=== PATIENT | female | born 2000 ===

== ENCOUNTER 2019-01-16 00:41 | Day surgery (SDC) | payer OTHER ==
[~2019-01-16] VITALS: Ht 172.7 cm; Wt 71.7 kg
[2019-01-16] MEDS ORDERED: MIDAZOLAM 2 MG/2 ML VIAL IVP PRN (06:45)
[2019-01-16] MEDS ORDERED: ceFAZolin(*) 2GM/D5W 50ML 50 ML IVPB ONE (06:45)
[2019-01-16] MEDS ORDERED: FAMOTIDINE 20 MG TAB PO ONE (06:45)
[2019-01-16] MEDS ORDERED: NORMOSOL R SOLN(*) 1000 ML BAG 1,000 ML IV PRN (06:45)
[2019-01-16] MEDS ORDERED: LIDOCAINE/SOD BICARB 8.4% SYR ID ONE (06:45)
[2019-01-16] MEDS ORDERED: fentaNYL CITR 100 MCG/2 ML AMP ONE (12:44)
[2019-01-16] MEDS ORDERED: LIDOCAINE 2% IV 100 MG/5ML SYR ONE (12:45)
[2019-01-16] MEDS ORDERED: PROPOFOL EMUL(*) 10MG/ML 20 ML 20 ML ONE (12:45)
[2019-01-16] MEDS ORDERED: PROPOFOL EMUL(*) 10MG/ML 20 ML 40 ML ONE ×2 (12:50→13:07)
[2019-01-16 13:02] VITALS: BP 116/62
[2019-01-16] MEDS ORDERED: ROPIVACAINE 0.5% 20 ML VIAL ONE (13:49)
[2019-01-16] MEDS ORDERED: DEXAMETHASONE SOD 4 MG/ML VIAL ONE (13:53)
[2019-01-16] MEDS ORDERED: ONDANSETRON 4 MG/2 ML VIAL ONE (13:54)
[2019-01-16] MEDS ORDERED: DOCU-416 PO (14:33)
[2019-01-16] MEDS ORDERED: TRAM-420 PO (14:33)
--- NOTE | 2019-01-16 14:37 | Short(Outpt) Discharge Summary ---
Discharge Summary Reason for Hosp/Final Diag: (1) Nodule of groin Status: Chronic Hospital Course & Plan: Left groin nodule excised without problems. Departure Discharge to: Home, Self Care Discharge Instructions Home Meds Active Scripts Docusate Sodium (COLACE) 100 Mg Capsule, 1 CAP PO BID, #30 CAPSULE 0 Refills Prov:MELANY RAMIRES MD 01/16/19 Tramadol Hcl (TRAMADOL HCL) 50 Mg Tablet, 1 TAB PO Q4H PRN for PAIN, #20 TAB 0 Refills Prov:MELANY RAMIRES MD 01/16/19 Follow up Referrals: General Surgery - 01/29/19 @ Surgery, General with MELANY RAMIRES MD You have a follow up appointment scheduled with Dr. Ramires on 01/29/19, at 4:30pm. Diet: Regular Activity: As Tolerated Special Instructions: You may remove the white surgical dressing on 01/18/19, then you can shower. After showering, leave the incision open to air but leave the steristrips in place until they fall off on their own. Do not immerse the incision for 2 weeks. MELANY RAMIRES MD Jan 16, 2019 14:37
--- NOTE | 2019-01-16 14:42 | Post Operative Progress Note ---
Post Operative Progress Note Date: Jan 16, 2019 Time: 14:38 Surgeon: Robert Dictation number: [id number] Anesthesia: LMA by Dr. Norris Pre-Op Diagnosis: Left groin nodule Post-Op Diagnosis: [facility] Findings: C/W dx Procedure(s): Excision of left groin nodule Specimen Removed:(May be N/A): Left groin nodule Complications: None Fluids: See anesthesia record Estimated Blood Loss: Minimal Date OP Note Dictated: Jan 16, 2019 Time OP Note Dictated: 14:39 MELANY RAMIRES MD Jan 16, 2019 14:42
[2019-01-16 15:05] VITALS: BP 99/57
[2019-01-16] MEDS ORDERED: NORMOSOL R SOLN(*) 1000 ML BAG 1,000 ML IV ONE (15:17)
[2019-01-16 15:25] VITALS: BP 101/64
[2019-01-16 15:30] VITALS: BP_SYST 101; BP_SYST 99; BP_DIAS 49; BP_DIAS 64
--- NOTE | 2019-01-16 15:48 | NUR ---
1505: patient completed phase I, stepdown intiated. VSS 1515: patient feeling slightly dizzy, blood pressure 90/53, new bag of IFV initiated, within 5 minutes patient was feeling better. 1530 Patient requested to go to bathroom, states she feels shakey, but no longer dizzy. orthostatic blood pressures completed and WNL. asymptomatic. Patient assisted to bathroom, patient was able to void without difficulty. Dressing clean dry and intact. 1545: patients mother and friend brought to bedside, IV infusing. Patient denies need for pain medication at this time.
[2019-01-16 15:58] VITALS: BP 103/52
--- NOTE | 2019-01-16 16:11 | OPERATIVE REPORT 1 ---
EVENT DATE: January 16, 2019 SURGEON: Neeraj Jones MD ANESTHESIOLOGIST: Ben Norris MD ANESTHESIA: General endotracheal anesthesia. PREOPERATIVE DIAGNOSIS Chronic left groin cyst. POSTOPERATIVE DIAGNOSIS Chronic left groin cyst. PROCEDURE PERFORMED Excision of left groin cyst. COMPLICATIONS None. CONDITION Stable. BLOOD LOSS Minimal. INDICATIONS This is a 18-year-old female who presented to my office with a lump in her left groin, and she said it had previously been incised and drained, but continues to have intermittent flare-ups, and she would like to have it removed. DESCRIPTION OF PROCEDURE The patient was brought to the operating room and placed upon the operating table. General endotracheal anesthesia was administered, and her left leg was placed in a frogleg position. Her left intertriginous/groin area was prepped and draped in a sterile fashion. Timeout was completed, and I injected the skin around the cyst with 0.5% ropivacaine plain. I made an elliptical incision to encompass the previous incision and drainage scar and dissected through the dermis and subcutaneous fat. I dissected around the cyst and then removed it from the wound and made the wound hemostatic with electrocautery. I closed it with interrupted 3-0 Vicryl deep dermal sutures and 4-0 Monocryl running subcuticular sutures. Skin was cleaned and dried, and Steri-Strips were applied, followed by a sterile surgical dressing. Patient was awakened and extubated in the operating room, transferred to the recovery room in stable condition having tolerated the procedure without any apparent problems. MORGAN
--- NOTE | 2019-01-16 16:16 | NUR ---
Patient discharge instructions completed with patient, mother and friend at bedside, all partied verbalized understanding, this RN answered all questions. Written instructions and prescriptions given to patient. Patient ambulated to car with all belongings.
== END 2019-01-16 15:05 | disposition home or self-care (01) ==
LOC: OR 00:41
PROVIDERS: ATTEND Surgery
DX: R22.2 Localized swelling, mass and lump, trunk (principal)
CPT/HCPCS: 11402; 81025; J1100; J2001; J2405; J2704; J2795; J3010; 88305; J0690